=== PATIENT | male | born 2000 | race Caucasian/White ===

== ENCOUNTER 2021-04-24 16:16 | Emergency (ER) | payer OTHER ==
[2021-04-24] MEDS ORDERED: SODIUM CHLORIDE 0.9% 1000 ML 1,000 ML IV ONE (16:32)
--- NOTE | 2021-04-24 16:33 | Emergency Department Report ---
ED Abdominal Pain HPI - General Chief Complaint: Abdominal Pain Stated Complaint: ABDOMINAL PAIN PUI?: No Time Seen by Provider: 04/24/21 16:23 Source: patient Mode of arrival: Ambulatory Limitations: No Limitations - History of Present Illness Initial Comments: 21-year-old male who has no significant past medical history presents to the ER today with abrupt onset of right lower quadrant/right flank pain. Patient states that pain started suddenly about 20 minutes ago. He states that [place] the [place] had just got into his truck when the pain started. He states that he has vomited twice and still continues to be nauseous. He denies any hematuria, dysuria, or inability to urinate. He states that the pain does rad iate down into his right testicle, but he has no testicular swelling, or redness. He denies any penile discharge. He denies any fever or chills. He denies similar symptoms in the past. He denies any abdominal surgery or testicular surgeries in the past. MD Complaint: abdominal pain, flank pain -: Sudden, minutes(s) (20) Severity scale (0 -10): 10 - Related Data Previous Rx's Medication Instructions Recorded Last Taken Type Ketorolac [Toradol] 10 mg PO Q6H PRN #20 tablet 04/24/21 Unknown Rx Ondansetron [Zofran Odt] 4 mg PO Q8HR #15 tab.rapdis 04/24/21 Unknown Rx Tamsulosin [Flomax] 0.4 mg PO QDAY #5 cap 04/24/21 Unknown Rx Allergies Allergy/AdvReac Type Severity Reaction Status Date / Time No Known Allergies Allergy Verified 04/24/21 16:29 ED Review of Systems ROS: Stated complaint: ABDOMINAL PAIN Other details as noted in HPI Comment: All other systems reviewed and negative Constitutional: denies: chills, fever ENT: denies: ear pain, throat pain Respiratory: denies: cough, shortness of breath, wheezing Gastrointestinal: abdominal pain, nausea, vomiting. denies: diarrhea, constipation, hematemesis, melena, hematochezia Genitourinary: denies: urgency, dysuria, frequency, hematuria, discharge, testicular pain, testicular mass Musculoskeletal: back pain. denies: joint swelling, arthralgia, myalgia Skin: as per HPI. denies: change in color, change in hair/nails, pruritus Neurological: denies: headache, weakness, paresthesias, confusion, abnormal gait, vertigo ED Past Medical Hx - Medications Home Medications: Home Medications Medication Instructions Recorded Confirmed Last Taken Type Ketorolac [Toradol] 10 mg PO Q6H PRN #20 tablet 04/24/21 Unknown Rx Ondansetron [Zofran Odt] 4 mg PO Q8HR #15 tab.rapdis 04/24/21 Unknown Rx Tamsulosin [Flomax] 0.4 mg PO QDAY #5 cap 04/24/21 Unknown Rx ED Physical Exam - General Limitations: No Limitations General appearance: alert, in distress (Patient in acute pain distress) - Head Head exam: Present: atraumatic, normocephalic, normal inspection - Eye Eye exam: Present: normal appearance, PERRL, EOMI Pupils: Present: normal accommodation - Neck Neck exam: Present: normal inspection, full ROM - Respiratory Respiratory exam: Present: normal lung sounds bilaterally. Absent: respiratory distress, wheezes, rales, rhonchi, stridor - Cardiovascular Cardiovascular Exam: Present: regular rate, normal rhythm, normal heart sounds - GI/Abdominal GI/Abdominal exam: Present: soft, tenderness (Mild tenderness to palpation right lower quadrant with some mild guarding.). Absent: distended, rebound - exam: Present: other (Marketing Clerk present). Absent: testicular tenderness, urethral discharge, scrotal swelling, vertical testicular lie, circumcision External exam: Present: normal external exam - Back Exam Back exam: Present: CVA tenderness (R) - Neurological Exam Neurological exam: Present: alert, oriented X3, CN II-XII intact, normal gait - Psychiatric Psychiatric exam: Present: normal affect, normal mood - Skin Skin exam: Present: intact ED Course Vital Signs 04/24/21 04/24/21 04/24/21 16:20 18:49 18:50 Temperature 97.7 F 98.3 F Pulse Rate 75 66 Respiratory 20 16 18 Rate Blood Pressure 123/66 130/71 [Left] O2 Sat by Pulse 99 98 99 Oximetry 04/24/21 19:44 Temperature Pulse Rate 99 H Respiratory 15 Rate Blood Pressure 115/94 [Left] O2 Sat by Pulse 100 Oximetry ED Medical Decision Making - Lab Data Result diagrams: 04/24/21 16:29 04/24/21 16:29 - Radiology Data Radiology results: report reviewed Patient: JANELLE HATHAWAY MR#: [id number] 42 : 2000 Acct:[id number] Age/Sex: 21 / M ADM Date: 04/24/21 Loc: ED Attending Dr: Ordering Physician: MACI WANG Date of Service: 04/24/21 Procedure(s): CT abdomen pelvis w con Accession Number(s): [id number] cc: MACI FELIPE CT ABDOMEN AND PELVIS WITH IV CONTRAST INDICATION: acute right lower quadrant abdominal pain radiating to R side/back. COMPARISON: None available. TECHNIQUE: Axial CT images were obtained through the abdomen and pelvis after 100 mL Omnipaque [address] scans at this location are performed using CT dose reduction for ALARA by means of automated exposure control. FINDINGS -- ABDOMEN: Lung Bases: No acute abnormality. Liver: Normal. Gallbladder: Normal. Bile Ducts: Normal. Pancreas: Normal. Spleen: Normal. Adrenals: Normal. Right Kidney and Proximal Ureter: Moderate right hydronephrosis secondary to a nonobstructive 2 mm calculus just proximal to the right ureterovesical junction within the distal right ureter. Left Kidney and Proximal Ureter: Normal. Stomach and Bowel: Normal. Lymph Nodes: No significant adenopathy. Aorta: No significant abnormality. IVC: Normal. Additional Findings: None. FINDINGS -- PELVIS: Urinary Bladder and Distal Ureters: Normal. Reproductive Organs: No acute abnormality. Appendix: Normal. Bowel: No acute abnormality. Free Fluid: None. Lymph Nodes: No significant adenopathy. Additional Findings: None. Skeletal System: No acute abnormality. IMPRESSION: 2 mm mildly obstructing calculus within the distal right ureter causing modera te right hydronephrosis, as above Signer Name: Helder Mcdowell MD Signed: 04/24/2021 5:45 PM Workstation Name: [id number] Transcribed By: BC Dictated By: Helder Mcdowell MD Electronically Authenticated By: Helder Mcdowell MD Signed Date/Time: 04/24/211744 DD/ 43 TD/TT: - Medical Decision Making 1852: Patient reports feeling much better after IV fluids, morphine and Toradol. He is currently laying on the bed, and resting comfortably. He is not toxic or ill-appearing. He is neurologically intact. All labs reviewed -CBC unremarkable. CMP shows slight decrease in his potassium at 3.5, and his glucose was mildly elevated at 133 but otherwise unremarkable including normal renal functions. His repeat vital signs have been stable. CT abdomen pelvis shows that patient has 2 mm mildly obstructing calculus within the distal right ureter causing moderate right hydronephrosis. Urinalysis pending. Flomax ordered. 2053: UA shows no UTI. Pt still resting comfortably. Discussed all results, dx and treatment plan with patient. He expressed understanding and agreed with plan. Patient stable for discharge. Critical care attestation.: If time is entered above; I have spent that time in minutes in the direct care of this critically ill patient, excluding procedure time. ED Disposition Clinical Impression: Kidney stone Disposition: HOME / SELF CARE / HOMELESS Is pt being admited?: No Does the pt Need Aspirin: No Condition: Stable Instructions: Kidney Stones Additional Instructions: Drink lots of water. Take the toradol as prescribed for pain. Take the zofran as prescribed for nausea and vomiting. Take the flomax as prescribed. Follow up with Urologist listed on your discharge instructions. Return to ED if worse. Prescriptions: Tamsulosin [Flomax] 0.4 mg PO QDAY #5 cap Ketorolac [Toradol] 10 mg PO Q6H PRN #20 tablet PRN Reason: Pain Ondansetron [Zofran Odt] 4 mg PO Q8HR #15 tab.rapdis Referrals: GREGORY DIGGS MD [Staff Physician] - 3-5 Days Time of Disposition: 20:54
[2021-04-24 16:38] LABS: Basophils % (Auto) 0.2 % (0.0-1.8); Eosinophils # (Auto) 0.1 K/mm3 (0.0-0.4); Eosinophils % (Auto) 0.5 % (0.0-4.3); Hematocrit 49.5 % (35.5-45.6); Hemoglobin 16.6 gm/dl (11.8-15.2); Lymphocytes # (Auto) 1.9 K/mm3 (1.2-5.4); Lymphocytes % (Auto) 18.2 % (13.4-35.0); Mean Corpuscular HGB Conc 34 % (32-34); Mean Corpuscular Volume 86 fl (84-94); Monocytes # (Auto) 0.8 K/mm3 (0.0-0.8); Monocytes % (Auto) 7.8 % (0.0-7.3); Platelet Count 243 K/mm3 (140-440); Red Blood Count 5.74 M/mm3 (3.65-5.03); Red Cell Distribution Width 14.1 % (13.2-15.2)
[2021-04-24 17:00] LABS: Alanine Aminotransferase 19 units/L (7-56); Albumin 4.5 g/dL (3.9-5); BUN/Creatinine Ratio 9; Blood Urea Nitrogen 7 mg/dL (9-20); Calcium 9.3 mg/dL (8.4-10.2); Hemolysis Index 35
[2021-04-24] MEDS ORDERED: KETOROLAC 30 MG/1 ML INJ IV ONE (17:00)
[2021-04-24] MEDS ORDERED: MORPHINE 4 MG/1 ML INJ IV ONE (17:00)
[2021-04-24] MEDS ORDERED: ONDANSETRON 4 MG/2 ML INJ IV ONE (17:00)
[2021-04-24 17:02] LABS: Bilirubin,Direct < 0.2 mg/dL (0-0.2)
--- NOTE | 2021-04-24 17:50 | Cat Scan Report ---
CT ABDOMEN AND PELVIS WITH IV CONTRAST INDICATION: acute right lower quadrant abdominal pain radiating to R side/back. COMPARISON: None available. TECHNIQUE: Axial CT images were obtained through the abdomen and pelvis after 100 mL Omnipaque [address] scans at this location are performed using CT dose reduction for ALARA by means of automated e xposure control. FINDINGS -- ABDOMEN: Lung Bases: No acute abnormality. Liver: Normal. Gallbladder: Normal. Bile Ducts: Normal. Pancreas: Normal. Spleen: Normal. Adrenals: Normal. Right Kidney and Proximal Ureter: Moderate right hydronephrosis secondary to a nonobstructive 2 mm ca lculus just proximal to the right ureterovesical junction within the distal right ureter. Left Kidney and Proximal Ureter: Normal. Stomach and Bowel: Normal. Lymph Nodes: No significant adenopathy. Aorta: No significant abnormality. IVC: Normal. Additional Findings: None. FINDINGS -- PELVIS: Urinary Bladder and Distal Ureters: Normal. Reproductive Organs: No acute abnormality. Appendix: Normal. Bowel: No acute abnormality. Free Fluid: None. Lymph Nodes: No significant adenopathy. Additional Findings: None. Skeletal System: No acute abnormality. IMPRESSION: 2 mm mildly obstructing calculus within the distal right ureter causing moderate right hydronephrosis , as above Signer Name: Helder Mcdowell MD Signed: 04/24/2021 5:45 PM Workstation Name: [id number]
[2021-04-24] MEDS ORDERED: TAMSULOSIN 0.4 MG CAP PO ONE (18:53)
[2021-04-24 20:13] LABS: Bilirubin,Urine NEG (Negative); Blood,Urine MOD (Negative); Color,Urine Straw (Yellow); Mucus,Urine FEW /HPF; Protein,Urine <15 mg/dL mg/dL (Negative); Urobilinogen,Urine < 2.0 mg/dL (<2.0)
[2021-04-24 21:42] VITALS: BP 112/67
== END 2021-04-24 21:20 | disposition home or self-care (01) ==
LOC: ED 16:16
DX: N20.0 Calculus of kidney (principal)
CPT/HCPCS: 36415; 74177; 80048; 80076; 81001; 83690; 85025; 96361; 96374; 96375; 99284; J1885; J2270; J2405; J7030; Q9967; Q0162